=== PATIENT | male | born 1960 | race Caucasian/White ===

== ENCOUNTER → 2018-06-27 | Outpatient (CLI) | payer OTHER ==
--- NOTE | 2018-06-27 09:25 | REP ---
CT CHEST WITHOUT CONTRAST: 06/27/2018. Comparison: Low-dose lung screening CT 02/14/2017. Clinical history: Reported incomplete nodular density in the right upper lobe on outside chest radiograph. This exam was not provided with the request. Findings: The noncontrast examination shows the lung [place] well inflated. I see no pleural effusion, pleural thickening, calcified pleural plaque or acute infiltrate. The heart is not enlarged. There are coronary artery calcifications visible on the right and left side. No pericardial thickening or effusion. The aorta without aneurysm and with minimal calcification at the arch. No pathologic sized lymphadenopathy. There is a calcification in the prevascular space in the superior mediastinum that could be old granulomatous disease. I do not see granulomatous calcifications in the long. There is some vascular calcification in the innominate artery at the extreme apex which would not project over lung. There is no hiatal hernia. I see no axillary or supraclavicular mass. The bone windows show sternum, manubrium, visualized ribs and costal cartilages without any significant finding. Scapulae, humeral heads and the spine were unremarkable. Visualized portions of upper abdomen show clips from prior cholecystectomy. Liver, spleen and those portions of pancreas included were all grossly intact. Adrenal glands normal. Upper poles of kidneys seen were unremarkable. Stomach and visualized bowel loops intact. Impression: 1. There is no CT evidence of parenchymal lung nodule or mass. Chest wall lesion visible. There is a small calcification in the anterior superior mediastinum suggesting a granuloma. This would not projectile on a frontal chest x-ray. 2. Incidentally noted are some calcifications in the coronary arteries. There is no pleural plaque or calcification, effusion, infiltrate, nodule or other significant finding. Negative CT. Electronically Signed by Johann Peraza MD 06/27/2018 06:29 P
== END ==
LOC: M RAD 06:52
PROVIDERS: ATTEND Family Medicine
DX: I25.10 Atherosclerotic heart disease of native coronary artery without angina pectoris (principal); R93.89 Abnormal findings on diagnostic imaging of other specified body structures

== ENCOUNTER → 2019-02-17 | Outpatient (REF) | payer OTHER | LOC: M LAB REF 11:59 | PROVIDERS: ATTEND Podiatrist Foot & Ankle Surgery | DX: M67.471 Ganglion, right ankle and foot (principal) ==

== ENCOUNTER → 2020-03-04 | Outpatient (CLI) | payer OTHER ==
--- NOTE | 2020-03-04 20:03 | REP ---
INDICATION: FORMER SMOKER COMPARISON: 02/14/2017, 06/27/2018 TECHNIQUE: Axial noncontrast images from the thoracic inlet to the upper abdomen using low-dose lung screening technique (LDCT). FINDINGS: Bilateral lung [place] are well aerated. No suspicious nodule or mass lesion. No consolidation. No effusion. No pneumothorax. Tracheobronchial tree is patent. Stable atherosclerotic changes to the thoracic aorta and coronary arteries again noted. IMPRESSION: Lung-RADS category 1. No suspicious nodule or mass lesion. Management recommendations include annual low-dose CT surveillance. <Electronically signed by George Emanuel > 03/04/201958
== END ==
LOC: M RAD 08:27
DX: Z12.2 Encounter for screening for malignant neoplasm of respiratory organs (principal); Z87.891 Personal history of nicotine dependence

== ENCOUNTER → 2022-02-28 | Outpatient (CLI) | payer OTHER | LOC: M WHC 07:41 | PROVIDERS: ATTEND Family Medicine | DX: M54.50 Low back pain, unspecified (principal) ==

== ENCOUNTER 2024-03-31 08:44 | Day surgery (SDC) | payer OTHER ==
[~2024-03-31] VITALS: Ht 180.3 cm; Wt 103.4 kg
[~2024-03-31 08:44] MED LIST: ASPI81TA26 PO; ATOR80TA59 PO; COQ150CH PO; COSA500T PO; CYAN500T14 PO; LISI5TAB11 PO; RA K500C PO; RA T500C2 PO; THERTAB52 PO; VITA100093 PO
[2024-03-31] MEDS ORDERED: LIDOCAINE 2% 100MG/5ML SDV (FOR ANES.) As Ordered ONE (10:00)
[2024-03-31] MEDS ORDERED: propofoL 200 MG/20 ML VIAL As Ordered ONE (10:00)
[2024-03-31 10:39] VITALS: TEMP 97.2
[2024-03-31 11:06] VITALS: BP 123/78; O2SAT 100
== END 2024-03-31 11:13 | disposition home or self-care (01) ==
LOC: M OPP 08:44
PROVIDERS: ATTEND Internal Medicine Gastroenterology
DX: Z12.11 Encounter for screening for malignant neoplasm of colon (principal); K63.5 Polyp of colon; K57.30 Diverticulosis of large intestine without perforation or abscess without bleeding; K64.8 Other hemorrhoids; I10 Essential (primary) hypertension; E78.00 Pure hypercholesterolemia, unspecified; M19.90 Unspecified osteoarthritis, unspecified site; Z87.891 Personal history of nicotine dependence; Z88.1 Allergy status to other antibiotic agents; Z79.82 Long term (current) use of aspirin; Z79.899 Other long term (current) drug therapy; Z80.0 Family history of malignant neoplasm of digestive organs